=== PATIENT | female | born 1980 | race Native Hawaiian/Other Pacific Islander ===

== ENCOUNTER 2019-06-20 09:49 | Outpatient (CLI) | payer OTHER ==
[~2019-06-20 09:49] MED LIST: ALPR0.2566 PO; AMOX500C85 PO; FLUO20CA6 PO
== END 2019-06-20 19:49 | disposition home or self-care (01) ==
LOC: MAMMO 09:49
DX: Z12.31 Encounter for screening mammogram for malignant neoplasm of breast (principal)

== ENCOUNTER 2019-07-04 13:22 | Outpatient (CLI) | payer OTHER | END 2019-07-04 21:59 | disposition home or self-care (01) | LOC: US 13:22 | DX: N64.59 Other signs and symptoms in breast (principal) ==

== ENCOUNTER 2020-05-27 12:43 | Outpatient (CLI) | payer OTHER | END 2020-05-28 00:42 | disposition home or self-care (01) | LOC: MAMMO 12:43 | DX: Z12.31 Encounter for screening mammogram for malignant neoplasm of breast (principal) ==

== ENCOUNTER 2023-01-12 18:12 | Outpatient (CLI) | payer OTHER | END 2023-01-12 19:12 | disposition home or self-care (01) | LOC: RAD 18:12 | PROVIDERS: ATTEND Internal Medicine | DX: M25.552 Pain in left hip (principal); M25.551 Pain in right hip ==